=== PATIENT | female | born 1945 | race Caucasian/White ===

== ENCOUNTER → 2016-05-20 | Outpatient (CLI) | payer BC, OTHER | LOC: RAD 07:22 | PROVIDERS: ATTEND Surgery | DX: R10.9 Unspecified abdominal pain (principal); E27.8 Other specified disorders of adrenal gland | CPT/HCPCS: 74177; 82565 ==

== ENCOUNTER → 2016-06-08 | Outpatient (CLI) | payer BC, OTHER ==
[2016-06-08 08:23] LABS: ABSOLUTE BASOPHILS # (AUTO) 0.1 10^3/uL (0.0-0.2); ABSOLUTE EOSINOPHILS # (AUTO) 0.2 10^3/uL (0.0-0.6); ABSOLUTE LYMPHOCYTES (AUTO) 1.8 10^3/uL (0.5-4.7); ABSOLUTE MONOCYTES (AUTO) 0.7 10^3/uL (0.1-1.4); ABSOLUTE NEUT (AUTO) 3.1 10^3/uL (1.7-8.2); HEMATOCRIT 40.2 % (36.0-47.0); HEMOGLOBIN 13.6 g/dL (12.0-15.5); HGB HCT DIFFERENCE 0.6; LYMPHOCYTES % (AUTO) 30.3 % (13-45); MEAN CORPUSCULAR HEMOGLOBIN 30.2 pg (27.0-33.4); MEAN CORPUSCULAR HGB CONC 33.8 g/dL (32.0-36.0); MEAN CORPUSCULAR VOLUME 90 fl (80-97); MONOCYTES % (AUTO) 12.4 % (3-13); RED BLOOD COUNT 4.48 10^6/uL (3.72-5.28); RED CELL DISTRIBUTION WIDTH 13.5 % (11.5-14.0); SEGMENTED NEUTROPHILS % (AUTO) 53.3 % (42-78); WHITE BLOOD COUNT 5.8 10^3/uL (4.0-10.5)
[2016-06-08 08:45] LABS: ALANINE AMINOTRANSFERASE 29 U/L (9-52); ALBUMIN 4.1 g/dL (3.5-5.0); ALKALINE PHOSPHATASE 117 U/L (38-126); ANION GAP 11 (5-19); ASPARTATE AMINO TRANSFERASE 23 U/L (14-36); BILIRUBIN,DIRECT 0.3 mg/dL (0.0-0.4); BILIRUBIN,TOTAL 0.5 mg/dL (0.2-1.3); BLOOD UREA NITROGEN 12 mg/dL (7-20); CALCIUM 9.6 mg/dL (8.4-10.2); CARBON DIOXIDE 28 mmol/L (22-30); CHLORIDE 108 mmol/L (98-107); CREATININE RESULT 0.76 mg/dL (0.52-1.25); GLUCOSE 102 mg/dL (75-110); POTASSIUM 4.6 mmol/L (3.6-5.0); SODIUM 147.1 mmol/L (137-145); TOTAL PROTEIN 7.2 g/dL (6.3-8.2)
== END ==
LOC: OD 07:26
PROVIDERS: ATTEND Surgery
DX: R10.9 Unspecified abdominal pain (principal)
CPT/HCPCS: 36415; 80053; 85025

== ENCOUNTER 2016-07-20 10:43 | Day surgery (SDC) | payer BC, OTHER ==
[~2016-07-20 10:43] MED LIST: ACETAMINOPHEN 325 MG TABLET PO PRN; LACTATED RINGERS 1000 ML IV PRN; LIDOCAINE 0.5% INJ-PF (5 MG/ML) 50 ML SDV SUBCUT PRN
[2016-07-20] MEDS ORDERED: MIDAZOLAM 2 MG/2 ML INJ ONE (12:34)
[2016-07-20] MEDS ORDERED: PROPOFOL INJ 200 MG/20 ML VIAL IV ONE (12:35)
[2016-07-20] MEDS ORDERED: OXYCODONE-ACETAMINOPHEN 5-325 MG TABLET PO PRN ×2 (13:39)
[2016-07-20] MEDS ORDERED: PROMETHAZINE HCL INJ 25 MG/1 ML VIAL IV PRN ×2 (13:39)
[2016-07-20] MEDS ORDERED: FENTANYL CITRATE INJ/PF 100 MCG/2 ML AMPUL IV PRN ×3 (13:39)
[2016-07-20] MEDS ORDERED: MEPERIDINE HCL/PF INJ 25 MG/1 ML DISP.SYRIN IV PRN (13:39)
[2016-07-20] MEDS ORDERED: ONDANSETRON HCL INJ/PF 4 MG/2 ML SDV IV PRN (13:39)
[2016-07-20] MEDS ORDERED: DIPHENHYDRAMINE HCL 50 MG/ML VIAL IV PRN (13:39)
[2016-07-20] MEDS ORDERED: MORPHINE SULFATE 10 MG/ML INJ IV PRN (13:39)
[2016-07-20] MEDS ORDERED: LIDOCAINE 1%/EPINEPHRINE INJ 20 ML VIAL ONE (14:12)
--- NOTE | 2016-07-20 14:32 | Operative Report ---
Operative Report DATE OF SURGERY: 07/20/16 PREOPERATIVE DIAGNOSIS: History of colon polyps POSTOPERATIVE DIAGNOSIS: Mid rectal polyp. Perianal skin papular lesions. Diverticulosis of the colon. Internal hemorrhoids. OPERATION: Colonoscopy with cold polypectomy of mid rectal polyp. Perianal skin biopsy. SURGEON: TL FRAGA ANESTHESIA: LMAC TISSUE REMOVED OR ALTERED: Mid rectal diminutive polyp. Perianal skin biopsy. COMPLICATIONS: None ESTIMATED BLOOD LOSS: Minimal INTRAOPERATIVE FINDINGS: Markedly redundant colon. Well-healed coloileal anastomosis. Diverticulosis of the colon. diminutive polyp at the mid rectum. Papular-like skin thickening at the perianal region. Internal hemorrhoids. Perianal skin tags. PROCEDURE: Informed consent was obtained. Patient was brought to the operating room and placed on the operating room table with her left side down. Procedure was done under LMAC. Perianal exam revealed partially prolapsing internal hemorrhoids with perianal skin tags and also papular-like skin thickening especially on the right perianal region. It did not look like condyloma. At the very end of the case the right perianal region was prepped with alcohol and local anesthetic administered and a 3 mm segment of skin that had the papular-like thickening was incisionally biopsied and submitted to pathology. Endoscope was passed via the patient's anus it was fed to the coloileal anastomosis. Patient's colon was markedly redundant making the procedure very difficult. Visualization was difficult due to the marked redundancies of her colon. The ileum was partially intubated and it appeared normal. The ileal [place] anastomosis was difficult to visualize since it was tucked right behind a fold. But no gross abnormalities were seen. There was a dogear diverticulum at the anastomosis on the colon side. There were scattered diverticuli throughout the transverse descending and sigmoid colon. Much more pronounced in the sigmoid colon. At the mid rectum there was a diminutive polyp which was cold polypectomied and the specimen retrieved. Patient tolerated procedure well with no apparent complications and was taken to the recovery area in stable condition. Will follow up with the patient in a couple weeks with the biopsy results.
--- NOTE | 2016-07-20 14:35 | PDOC DISCHARGE SUMMARY ---
Discharge Summary (SDC) - Discharge Final Diagnosis: Mid rectal polyp. Internal hemorrhoids. Perianal skin undefined abnormality. Date of Surgery: 07/20/16 Discharge Date: 07/20/16 Condition: Good Treatment or Instructions: Colonoscopy with cold polypectomy of mid rectal polyp. Perianal skin incisional biopsy. May discharge patient home when met discharge criteria. Wash perianal region with water after each bowel movement and each day. Follow- up with me in 2 weeks. Discharge Diet: As Tolerated Discharge Activity: Activity As Tolerated Report the Following to Your Physician Immediately: Increase in Pain, Fever over 101 Degrees, Redness, Drainage-Foul Smelling
[2016-07-20 16:10] VITALS: BP 160/81
== END 2016-07-20 15:55 | disposition home or self-care (01) ==
LOC: END 10:43
PROVIDERS: ATTEND Surgery
PROC: 0DBQXZX Excision of Anus, External Approach, Diagnostic (ICD-10-PCS; 2016-07-20)
PROC: 0DBP8ZX Excision of Rectum, Via Natural or Artificial Opening Endoscopic, Diagnostic (ICD-10-PCS; principal; 2016-07-20 13:00)
DX: K57.30 Diverticulosis of large intestine without perforation or abscess without bleeding (principal); K63.5 Polyp of colon; K64.8 Other hemorrhoids; K64.4 Residual hemorrhoidal skin tags; I10 Essential (primary) hypertension; F17.210 Nicotine dependence, cigarettes, uncomplicated; Z79.899 Other long term (current) drug therapy
CPT/HCPCS: 45385; 88305 ×2; 46999; J2250; J3490; J2704; 810